=== PATIENT | female | born 1980 | race Caucasian/White ===

== ENCOUNTER → 2017-08-23 | Outpatient (CLI) | payer OTHER ==
[2017-08-23 10:06] LABS: Basophils % (A) 1 %; CHCM 32.6; Eosinophils # (A) 0.1 k/uL (0-0.7); Eosinophils % (A) 2 %; HDW 2.17; HGB 13.8 gm/dL (11.4-16.0); Luc % (Auto) 1; Lymphocytes # (A) 1.8 k/uL (1.0-4.8); Lymphocytes % (A) 24 %; MCHC 33.6 g/dL (31.0-37.0); MCV 92.5 fL (80.0-100.0); Mean Platelet Volume 7.2; Monocytes # (A) 0.5 k/uL (0-1.0); Monocytes % (A) 6 %; Neutrophils # (A) 5.1 k/uL (1.3-7.7); Neutrophils % (A) 67 %; RBC 4.44 m/uL (3.80-5.40); RDW 14.3 % (11.5-15.5); WBC 7.6 k/uL (3.8-10.6); WBC (Perox) 8.09
== END | disposition home or self-care (01) ==
LOC: LABWHC1 09:28
PROVIDERS: ATTEND Obstetrics & Gynecology
DX: Z01.812 Encounter for preprocedural laboratory examination (principal)
CPT/HCPCS: 85025; 86850; 86900; 86901

== ENCOUNTER 2017-08-24 10:42 | Day surgery (SDC) | payer BC, OTHER ==
[2017-08-23 09:59] VITALS: BMI 35.6
[~2017-08-24 10:42] MED LIST: HYDROmorphone 0.5 MG/0.5 ML SYRINGE IVP PRN; LACTATED RINGERS 1,000 ML IV SCH; MIDAZOLAM 2 MG/2 ML VIAL IV PRN; ONDANSETRON 4 MG/2 ML VIAL IVP ONE; Pre Op ABX Message 1 EACH MISC MISCELLANE ONE
[2017-08-24] MEDS ORDERED: LIDOCAINE 1% 20 ML VIAL (10MG/ML) FOR IV START INTRADERMA ONE ×2 (11:15→11:17)
[2017-08-24 11:17] VITALS: TEMP 98
[2017-08-24] MEDS ORDERED: PROPOFOL 10 MG/ML 20 ML VIAL IV ONE (12:00)
[2017-08-24] MEDS ORDERED: LIDOCAINE 1% INJ 10MG/ML (20 ML MDV) ONE (12:00)
[2017-08-24] MEDS ORDERED: MIDAZOLAM 2 MG/2 ML VIAL ONE (12:00)
[2017-08-24] MEDS ORDERED: fentaNYL (PF) 50 MCG/ML 2 ML AMP ONE (12:00)
[2017-08-24] MEDS ORDERED: KETOROLAC 30 MG/ML 1 ML VIAL ONE (12:00)
--- NOTE | 2017-08-24 12:01 | P.HPOB ---
History of Present Illness H&P Date: 08/24/17 Chief Complaint: missed ab Hollie is a 36-year-old female with a 9 week demise. Risks/benefits/ alternatives to a suction D&C were discussed with the patient in detail and all questions have been answered for her prior to proceeding to the operating room. She is scheduled for a suction D&C. Ultrasound verified nonviable at 9 weeks on 08/20/2017. On physical exam vital signs are stable and afebrile. Heart regular, lungs clear, extremities without pain. Abdomen soft nontender. Pelvic exams unremarkable. Assessment missed AB. Plan suction D&C. Past Medical History Past Medical History: Asthma Additional Past Medical History / Comment(s): hiatal hernia History of Any Multi-Drug Resistant Organisms: None Reported Past Surgical History: Adenoidectomy, Cholecystectomy, Ear Surgery, Tonsillectomy Additional Past Surgical History / Comment(s): tube left ear Past Anesthesia/Blood Transfusion Reactions: No Reported Reaction Past Psychological History: Anxiety, Depression Smoking Status: Former smoker Past Alcohol Use History: None Reported Past Drug Use History: None Reported Additional Drug Use History / Comment(s): No longer using. Marijuana use hx 1 time a month - Past Family History Mother Family Medical History: Congestive Heart Failure (CHF) Medications and Allergies Home Medications Medication Instructions Recorded Confirmed Type Albuterol Sulfate [Proair Hfa] 2 puff INHALATION RT-Q6H PRN 07/19/14 08/23/17 History Venlafaxine HCl [Effexor] 75 mg PO QAM 08/23/17 08/23/17 History Allergies Allergy/AdvReac Type Severity Reaction Status Date / Time ciprofloxacin [From Cipro] Allergy Hallucinati Verified 08/23/17 09:50 ons Exam Osteopathic Statement: *. No significant issues noted on an osteopathic structural exam other than those noted in the History and Physical/Consult. - Vital Signs Vital signs: Vital Signs Temp Pulse BP Pulse Ox 08/24/17 11:15 98 F 77 110/73 97
--- NOTE | 2017-08-24 12:32 | P.OP ---
Date of Procedure: 08/24/17 Preoperative Diagnosis: Missed AB Postoperative Diagnosis: Same Procedure(s) Performed: Suction D&C Anesthesia: RENZOA Surgeon: Draen Ramirez Estimated Blood Loss (ml): 50 Pathology: other (Products of conception) Condition: stable Disposition: same day Description of Procedure: Patient was taken to the operating suite where a general anesthetic was found be adequate. She was prepped and draped in normal sterile fashion and placed in dorsal lithotomy position. Initially weighted speculum was inserted into the vagina and the anterior lip of cervix identified and grasped with an Allis clamp. Cervix isn't dilated. Using a 9 curved tip suction catheter the catheter was inserted and suction was applied clockwise rotation was then done to help extrude the tissue. This was sent to times. Once this was accomplished gentle sharp curettings were done to make verified no further tissue was in the uterus and 2 more passes with suction tip were done. At the conclusion of the procedure bleeding was noted to be minimal and patient was taken to the recovery room in stable and satisfactory condition. Plan - Discharge Summary New Discharge Prescriptions: New Ibuprofen [Motrin] 600 mg PO Q6HR PRN #30 tab PRN Reason: Pain Methylergonovine [Methergine] 0.2 mg PO TID #6 tablet No Action Albuterol Sulfate [Proair Hfa] 2 puff INHALATION RT-Q6H PRN PRN Reason: Shortness Of Breath Venlafaxine HCl [Effexor] 75 mg PO QAM Discharge Medication List Albuterol Sulfate [Proair Hfa] 2 puff INHALATION RT-Q6H PRN 07/19/14 [History] Venlafaxine HCl [Effexor] 75 mg PO QAM 08/23/17 [History] Ibuprofen [Motrin] 600 mg PO Q6HR PRN #30 tab 08/24/17 [Rx] Methylergonovine [Methergine] 0.2 mg PO TID #6 tablet 08/24/17 [Rx] Follow up Appointment(s)/Referral(s): Daren Ramirez DO [Doctor of Osteopathic Medicine] - 1 Week Activity/Diet/Wound Care/Special Instructions: Heavy lifting, limit stairs and driving and pelvic rest. If any high temperatures, heavy bleeding, or severe pain call my office
[2017-08-24 13:47] VITALS: RESP 18
[2017-08-24 14:12] VITALS: BP 115/66; PULSE 61
== END 2017-08-24 14:15 | disposition home or self-care (01) ==
LOC: OR 10:42
PROVIDERS: ATTEND Obstetrics & Gynecology
DX: O02.1 Missed abortion (principal); J45.909 Unspecified asthma, uncomplicated; K44.9 Diaphragmatic hernia without obstruction or gangrene; F41.9 Anxiety disorder, unspecified; F32.9 Major depressive disorder, single episode, unspecified; Z3A.09 9 weeks gestation of pregnancy; Z88.1 Allergy status to other antibiotic agents; Z79.899 Other long term (current) drug therapy; Z87.891 Personal history of nicotine dependence; Z82.49 Family history of ischemic heart disease and other diseases of the circulatory system
CPT/HCPCS: 59820; 86900; 86901; 88305; 86850; J2250; J2405; J2001; J3010; J1885; J2704; J1170; 85025

== ENCOUNTER 2017-12-22 21:48 | Emergency (ER) | payer OTHER ==
[2017-12-22] MEDS ORDERED: DIPH,PERTUS(ACELL)TETVAC-LF 0.5 ML VIAL IM ONE (22:32)
[2017-12-22] MEDS ORDERED: GELATIN SPONGE,ABSORB (SMALL) 1 EACH SPONGE TOPICAL STA (22:45)
--- NOTE | 2017-12-22 23:00 | ED ---
General Adult HPI - General Chief complaint: Wound/Laceration Stated complaint: finger lac Time Seen by Provider: 12/22/17 21:58 Source: patient, RN notes reviewed Mode of arrival: ambulatory Limitations: no limitations - History of Present Illness Initial comments: 37 year old female presents to the emergency department for a chief complaint of laceration to the MCP joint of the second digit of the left hand x 2 hours. Patient states she was washing dishes when she scraped her hand across a glass that had broken. She did not realize the glass was broken. She states she did not think she needed stitches but that it would not stop bleeding. Patient is not up-to-date on her tetanus shot. Patient states she has full range of motion of the finger and full sensation in the finger. Patient has no other complaints at this time. Patient denies shortness of breath, chest pain, abdominal pain, nausea or vomiting. - Related Data Home Medications Medication Instructions Recorded Confirmed Albuterol Sulfate [Proair Hfa] 2 puff INHALATION RT-Q6H PRN 07/19/14 08/23/17 Venlafaxine HCl [Effexor] 75 mg PO QAM 08/23/17 08/23/17 Previous Rx's Medication Instructions Recorded Ibuprofen [Motrin] 600 mg PO Q6HR PRN #30 tab 08/24/17 Methylergonovine [Methergine] 0.2 mg PO TID #6 tablet 08/24/17 Allergies Allergy/AdvReac Type Severity Reaction Status Date / Time ciprofloxacin [From Cipro] Allergy Hallucinati Verified 08/23/17 09:50 ons Review of Systems ROS Statement: Those systems with pertinent positive or pertinent negative responses have been documented in the HPI. ROS Other: All systems not noted in ROS Statement are negative. Past Medical History Past Medical History: Asthma Additional Past Medical History / Comment(s): hiatal hernia History of Any Multi-Drug Resistant Organisms: None Reported Past Surgical History: Adenoidectomy, Cholecystectomy, Tonsillectomy Past Anesthesia/Blood Transfusion Reactions: No Reported Reaction Past Psychological History: Anxiety, Bipolar, Depression Smoking Status: Former smoker Past Alcohol Use History: None Reported Past Drug Use History: None Reported General Exam Limitations: no limitations Respiratory exam: Present: normal lung sounds bilaterally. Absent: respiratory distress, wheezes, rales, rhonchi, stridor Cardiovascular Exam: Present: regular rate, normal rhythm, normal heart sounds. Absent: systolic murmur, diastolic murmur, rubs, gallop, clicks Extremities exam: Present: full ROM, normal capillary refill, other (There is a 0.5 cm x 0.5 cm abrasion on the dorsal aspect MCP joint of the second digit of the left hand. This cannot be stitched. It is slightly bleeding. Patient has full range of motion of that finger and capillary refill is less than 2 seconds. ). Absent: tenderness, pedal edema, joint swelling, calf tenderness Course Vital Signs 12/22/17 21:50 Temperature 97.9 F Pulse Rate 102 H Respiratory 18 Rate Blood Pressure 174/90 O2 Sat by Pulse 98 Oximetry Medical Decision Making - Medical Decision Making 37 year old female presents the emergency department for chief complaint of abrasion to the MCP joint of the second digit of the left hand. Patient states this happened about 2 hours ago. Patient is not up-to-date on her tetanus shot. Patient was given a tetanus shot in the emergency department. On exam patient has no range of motion of the affected finger and radial pulse 2+. Capillary refill less than 2 seconds in the affected finger. Neurovascular intact. Gelfoam was applied to the area due to the bleeding. Patient was educated that it would fall off on its own probably tomorrow. She is to return if she notices any worsening symptoms or signs of infection. She is to follow up with primary care in 1-2 days. Disposition Clinical Impression: Laceration Disposition: HOME SELF-CARE Condition: Good Instructions: Laceration (ED) Additional Instructions: Please return to the emergency Department if you notice any worsening symptoms or signs of infection. Otherwise follow-up with primary care in 1-2 days. Let the Gelfoam fall off on its own. Take Motrin or Tylenol for pain relief. Is patient prescribed a controlled substance at discharge?: No Referrals: Derek Ramos MD [Primary Care Provider] - 1-2 days Time of Disposition: 23:01
[2017-12-22 23:12] VITALS: BP 168/59; PULSE 88; RESP 20; TEMP 98.3
== END 2017-12-22 23:10 | disposition home or self-care (01) ==
LOC: EC 21:48
DX: S61.211A Laceration without foreign body of left index finger without damage to nail, initial encounter (principal); F41.9 Anxiety disorder, unspecified; F32.9 Major depressive disorder, single episode, unspecified; Z23 Encounter for immunization; Z79.899 Other long term (current) drug therapy; Z88.1 Allergy status to other antibiotic agents; Z87.891 Personal history of nicotine dependence; W25.XXXA Contact with sharp glass, initial encounter; Y93.G1 Activity, food preparation and clean up; Y92.009 Unspecified place in unspecified non-institutional (private) residence as the place of occurrence of the external cause
CPT/HCPCS: 90471; 90715; 99282

== ENCOUNTER 2017-12-29 14:06 | Emergency (ER) | payer OTHER ==
[2017-12-29 14:32] VITALS: BP 157/84; PULSE 102; RESP 18; TEMP 97.3
[2017-12-29] MEDS ORDERED: Acetaminophen-Codeine 300-30mg TAB PO STA (15:28)
--- NOTE | 2017-12-29 16:04 | XR ---
EXAM TYPE: LUMBAR SPINE X RAY SERIES COMPARISON: NONE HISTORY: Pain TECHNIQUE: 3 views are submitted. FINDINGS: Alignment is anatomic. The pedicles are intact. The transverse processes are intact. There is no s pondylolysis or spondylolisthesis. Metallic structure overlying the left pelvis is nonspecific. Mild hypertrophic spurring involving several vertebral segments. Facet arthropathy at L4-5 and L5-S1 sugg ested. No compression deformities. IMPRESSION: 1. Facet arthropathy L4-5 and L5-S1. If there is concern for disc herniation correlate with MRI as cl inically warranted.
--- NOTE | 2017-12-29 16:54 | ED ---
General Adult HPI - General Chief complaint: Back Pain/Injury Stated complaint: Rt leg pain Time Seen by Provider: 12/29/17 14:38 Source: patient, RN notes reviewed Mode of arrival: ambulatory Limitations: no limitations - History of Present Illness Initial comments: 37-year-old female presents to the emergency department for a chief complaint of lower back pain 2 days. Patient denies any injury but states that throughout the day on Wednesday she started to have a tightening in the back and worsening of pain. Patient denies chronic back pain. Patient denies any bladder or bowel changes. Patient denies saddle anesthesia. Patient states the pain is a sharp pain that shoots into her groin and down her leg from her low back. Patient saw a provider in an urgent care and was given steroids yesterday. Patient began them yesterday and continued them today. Patient wanted to be seen again today because she states they are not helping with the pain. Patient denies any numbness or tingling in her legs. Patient denies any other complaints at this time including shortness of breath, chest pain, abdominal pain, nausea or vomiting. - Related Data Home Medications Medication Instructions Recorded Confirmed Albuterol Sulfate [Proair Hfa] 2 puff INHALATION RT-Q6H PRN 14 08/23/17 Venlafaxine HCl [Effexor] 75 mg PO QAM 08/23/17 08/23/17 Previous Rx's Medication Instructions Recorded Ibuprofen [Motrin] 600 mg PO Q6HR PRN #30 tab 08/24/17 Methylergonovine [Methergine] 0.2 mg PO TID #6 tablet 08/24/17 Acetaminophen-Codeine 300-30mg 1 tab PO Q6H PRN #12 tablet 12/29/17 [Tylenol #3] Ibuprofen [Motrin] 600 mg PO Q8HR PRN #20 tab 12/29/17 Allergies Allergy/AdvReac Type Severity Reaction Status Date / Time ciprofloxacin [From Cipro] Allergy Hallucinati Verified 12/29/17 14:27 ons Review of Systems ROS Statement: Those systems with pertinent positive or pertinent negative responses have been documented in the HPI. ROS Other: All systems not noted in ROS Statement are negative. Past Medical History Past Medical History: Asthma Additional Past Medical History / Comment(s): hiatal hernia History of Any Multi-Drug Resistant Organisms: None Reported Past Surgical History: Adenoidectomy, Cholecystectomy, Tonsillectomy Past Anesthesia/Blood Transfusion Reactions: No Reported Reaction Past Psychological History: Anxiety, Bipolar, Depression Smoking Status: Current every day smoker Past Alcohol Use History: Occasional Past Drug Use History: None Reported General Exam Limitations: no limitations General appearance: alert, in no apparent distress Head exam: Present: atraumatic, normocephalic, normal inspection Neck exam: Present: normal inspection, full ROM. Absent: tenderness, meningismus, lymphadenopathy Respiratory exam: Present: normal lung sounds bilaterally. Absent: respiratory distress, wheezes, rales, rhonchi, stridor Cardiovascular Exam: Present: regular rate, normal rhythm, normal heart sounds. Absent: systolic murmur, diastolic murmur, rubs, gallop, clicks Extremities exam: Present: normal inspection, normal capillary refill (in BLE, pedal puses 2+). Absent: pedal edema, joint swelling, calf tenderness Back exam: Present: tenderness (Patient has tenderness along the lumbar spine and bilateral lower back.), paraspinal tenderness (Tenderness bilaterally along the lumbar spine), vertebral tenderness (Tenderness along the lumbar spine), other (Patient is able to walk and was visualized walking to the bathroom). Absent: full ROM (Patient has limited flexion and extension and twisting of the low back.), CVA tenderness (R), CVA tenderness (L) Course Vital Signs 12/29/17 14:27 Temperature 97.3 F L Pulse Rate 102 H Respiratory 18 Rate Blood Pressure 157/84 O2 Sat by Pulse 99 Oximetry Medical Decision Making - Medical Decision Making 37-year-old female presents to the emergency department for chief complaint of low back pain 2 days. Patient saw an urgent care provider yesterday and was given steroids which she is continuing to take. Patient denies any injuries. Patient denies urinary or bowel changes. Patient denies saddle anesthesia or numbness and tingling in the legs. She describes the pain as a sharp pain shooting into her groin and down her leg. Patient had Motrin right before coming to the emergency department. Patient was given Tylenol 3. Patient declined Flexeril. Patient states she is not driving and her boyfriend dropped her off and is picking her up. X-ray was performed which showed some facet arthropathy but no fractures or dislocations. Patient was offered a prescription of Flexeril which she declined because she states she does not want to take too many medications. Patient did accept Motrin and Tylenol 3 prescriptions. MAPS was performed and patient has no previous opioid prescriptions. Patient was offered an orthopedic spine referral which she declined. She states she has a physical therapist and only wants to see Dr. Donahue who is not calling her back at this time. She states she will continue to call him. She was also told to follow up with primary care in 1-2 days. She is to use heat or ice on the affected area as well depending on what helps her feel better. She is to return to the emergency Department if she has any worsening symptoms, bladder or bowel changes, or saddle anesthesia. Patient is aware of this. - Lab Data Lab Results 12/29/17 Range/Units 15:17 Urine HCG, Qual Not Detected (Not Detectd) Disposition Clinical Impression: Acute low back pain Disposition: HOME SELF-CARE Condition: Good Instructions: Acute Low Back Pain (ED) Additional Instructions: Please return to the emergency department if you have any worsening symptoms or bladder or bowel dysfunction. Follow up with primary care provider in one to 2 days. Please take Motrin for pain relief and Tylenol 3 if pain is severe. Prescriptions: Acetaminophen-Codeine 300-30mg [Tylenol #3] 1 tab PO Q6H PRN #12 tablet PRN Reason: Pain Ibuprofen [Motrin] 600 mg PO Q8HR PRN #20 tab PRN Reason: Pain Is patient prescribed a controlled substance at d/c from ED?: Yes Referrals: Derek Ramos MD [Primary Care Provider] - 1-2 days
== END 2017-12-29 17:00 | disposition home or self-care (01) ==
LOC: EC 14:06
DX: M54.5 Low back pain (principal); F32.9 Major depressive disorder, single episode, unspecified; F41.9 Anxiety disorder, unspecified; F17.200 Nicotine dependence, unspecified, uncomplicated; Z88.1 Allergy status to other antibiotic agents; Z79.899 Other long term (current) drug therapy
CPT/HCPCS: 72100; 81025; 99283

== ENCOUNTER → 2018-01-10 | Outpatient (CLI) | payer OTHER ==
[2018-01-10 09:07] LABS: Basophils % (A) 0 %; Eosinophils # (A) 0.3 k/uL (0-0.7); Eosinophils % (A) 3 %; HCT 40.3 % (34.0-46.0); HGB 13.4 gm/dL (11.4-16.0); Lymphocytes # (A) 1.9 k/uL (1.0-4.8); Lymphocytes % (A) 21 %; MCH 29.7 pg (25.0-35.0); MCHC 33.2 g/dL (31.0-37.0); MCV 89.7 fL (80.0-100.0); Mean Platelet Volume 6.5; Monocytes # (A) 0.5 k/uL (0-1.0); Monocytes % (A) 6 %; Neutrophils % (A) 69 %; Platelet Count 269 k/uL (150-450); WBC 8.8 k/uL (3.8-10.6)
[2018-01-10 09:13] LABS: Partial Thromboplastin Time 23.1 sec (22.0-30.0); Prothrombin Time 9.7 sec (9.0-12.0)
[2018-01-10 09:22] LABS: ALT 74 U/L (9-52); AST 25 U/L (14-36); Alkaline Phosphatase 88 U/L (38-126); Anion Gap 12 mmol/L; Blood Urea Nitrogen 10 mg/dL (7-17); Carbon Dioxide 23 mmol/L (22-30); Chloride 105 mmol/L (98-107); Glucose 93 mg/dL (74-99); Potassium 4.2 mmol/L (3.5-5.1); Sodium 140 mmol/L (137-145); Total Bilirubin 0.4 mg/dL (0.2-1.3); Total Protein 6.5 g/dL (6.3-8.2)
[2018-01-10 12:43] LABS: Appearance,Urine Clear (Clear); Bilirubin,Urine Negative (Negative); Blood,Urine Negative (Negative); Color,Urine Light Yellow; Glucose,Urine (UA) Negative (Negative); Ketones,Urine Negative (Negative); Leukocyte Esterase,Urine Negative (Negative); Nitrite,Urine Negative (Negative); PH, Urine 6.5 (5.0-8.0); Protein,Urine Negative (Negative); Specific Gravity,Urine 1.004 (1.001-1.035); Urobilinogen,Urine <2.0 mg/dL (<2.0)
== END | disposition home or self-care (01) ==
LOC: LABPAT 08:10
PROVIDERS: ATTEND Orthopaedic Surgery Orthopaedic Surgery of the Spine
DX: Z01.812 Encounter for preprocedural laboratory examination (principal); M53.80 Other specified dorsopathies, site unspecified; Z01.818 Encounter for other preprocedural examination
CPT/HCPCS: 80048; 80053; 81003; 85025; 85610; 85730; 87070; 93005

== ENCOUNTER 2018-01-12 11:36 | Day surgery (SDC) | payer OTHER ==
[2018-01-10 14:04] VITALS: BMI 35.5
[~2018-01-12 11:36] MED LIST changes: +BACITRACIN 50,000 UNIT, POLYMYXIN B 500,000 UNIT in SODIUM CHLORIDE 0.9% IRRIGATIO 1,00... IRRIGATION ONE; +DEXAMETHASONE SOD PHOSPHATE 10 MG/ML 1 ML VIAL IV ONE; -HYDROmorphone 0.5 MG/0.5 ML SYRINGE IVP PRN; +LIDOCAINE 1% 20 ML VIAL (10MG/ML) FOR IV START INTRADERMA PRN; -ONDANSETRON 4 MG/2 ML VIAL IVP ONE; +ONDANSETRON ODT 4 MG TAB PO ONE; -Pre Op ABX Message 1 EACH MISC MISCELLANE ONE; +SCOPOLAMINE 1.5MG/72HR PATCH TRANSDERM ONE; +ceFAZolin IN SWFI 2 GM/20 ML SYRINGE IVP ONE; +fentaNYL (PF) 50 MCG/ML 2 ML AMP IV PRN
[2018-01-12 12:32] VITALS: BP 137/74; PULSE 68; RESP 18; TEMP 98.4
--- NOTE | 2018-01-12 13:34 | P.DS ---
Providers Attending physician: Rayo Garcias Primary care physician: Derek Salas [facility] Course: The patient presented today for her lumbar spine surgery for decompression discectomy for her disc herniation with lower extremity neuropathy. She continues to have significant symptoms at her back and lower extremity. In preoperative she was discovered have a positive urine test for hCG. She had repeat test which was also positive and then had blood test which was positive showing the patient is newly diagnosed with a new . The patient was unaware of this. With the patient's surgery will be canceled today. We discussed the different issues in regards to surgery and her with her at length. She plans to follow closely with her primary care doctor Dr. Raoms and possibly her OB Dr. Ramirez for close evaluation tomorrow or the next day. She will be discharged here today with her surgery canceled and will follow-up with her in 2-3 weeks. I answered her questions best my ability healing which she can understand and she agrees. Plan - Discharge Summary Discharge Rx Participant: Yes New Discharge Prescriptions: No Action Albuterol Sulfate [Proair Hfa] 2 puff INHALATION RT-Q6H PRN PRN Reason: Shortness Of Breath Acetaminophen-Codeine 300-30mg [Tylenol #3] 1 tab PO Q6H PRN #12 tablet PRN Reason: Pain Gabapentin [Neurontin] 300 mg PO BID Cyanocobalamin [Vitamin B-12] 500 mcg PO DAILY Discharge Medication List Albuterol Sulfate [Proair Hfa] 2 puff INHALATION RT-Q6H PRN 07/19/14 [History] Acetaminophen-Codeine 300-30mg [Tylenol #3] 1 tab PO Q6H PRN #12 tablet [Rx] Cyanocobalamin [Vitamin B-12] 500 mcg PO DAILY 01/10/18 [History] Gabapentin [Neurontin] 300 mg PO BID 01/10/18 [History] Follow up Appointment(s)/Referral(s): Rayo Garcias DO [Doctor of Osteopathic Medicine] - 3 Weeks Derek Ramos MD [Primary Care Provider] - 1-2 Days (New ) Discharge Disposition: HOME SELF-CARE
== END 2018-01-12 13:42 | disposition home or self-care (01) ==
LOC: OR 11:36
PROVIDERS: ATTEND Orthopaedic Surgery Orthopaedic Surgery of the Spine
DX: M51.26 Other intervertebral disc displacement, lumbar region (principal); G57.90 Unspecified mononeuropathy of unspecified lower limb; Z53.8 Procedure and treatment not carried out for other reasons; Z32.01 Encounter for pregnancy test, result positive; Z79.899 Other long term (current) drug therapy; F17.210 Nicotine dependence, cigarettes, uncomplicated
CPT/HCPCS: 84703; 86850; 86900; 86901

== ENCOUNTER → 2018-02-11 | Outpatient (CLI) | payer OTHER ==
--- NOTE | 2018-02-11 12:37 | XR ---
EXAMINATION TYPE: XR chest 2V DATE OF EXAM: 02/11/2018 COMPARISON: NONE TECHNIQUE: PA and lateral views submitted. HISTORY: Presurgical FINDINGS: The lungs are clear and there is no pneumothorax, pleural effusion, or focal pneumonia. Hypertrophic changes spine noted. IMPRESSION: 1. No acute process.
[2018-02-11 12:42] LABS: Basophils % (A) 0 %; Eosinophils % (A) 0 %; HGB 15.4 gm/dL (11.4-16.0); Lymphocytes # (A) 2.5 k/uL (1.0-4.8); Lymphocytes % (A) 23 %; MCH 30.9 pg (25.0-35.0); MCHC 35.1 g/dL (31.0-37.0); MCV 88.1 fL (80.0-100.0); Mean Platelet Volume 6.7; Monocytes # (A) 0.7 k/uL (0-1.0); Monocytes % (A) 7 %; Neutrophils # (A) 7.7 k/uL (1.3-7.7); Neutrophils % (A) 69 %; Platelet Count 350 k/uL (150-450); RBC 4.99 m/uL (3.80-5.40); RDW 12.7 % (11.5-15.5); WBC 11.1 k/uL (3.8-10.6)
[2018-02-11 12:53] LABS: Anion Gap 16 mmol/L; Blood Urea Nitrogen 15 mg/dL (7-17); Calcium 10.1 mg/dL (8.4-10.2); Carbon Dioxide 19 mmol/L (22-30); Chloride 108 mmol/L (98-107); Glucose 91 mg/dL (74-99); Potassium 4.5 mmol/L (3.5-5.1); Sodium 143 mmol/L (137-145)
[2018-02-11 12:55] LABS: Appearance,Urine Clear (Clear); Bilirubin,Urine Negative (Negative); Blood,Urine Negative (Negative); Color,Urine Yellow; Glucose,Urine (UA) Negative (Negative); Ketones,Urine Trace (Negative); Leukocyte Esterase,Urine Negative (Negative); Nitrite,Urine Negative (Negative); PH, Urine 5.5 (5.0-8.0); Protein,Urine Trace (Negative)
[2018-02-11 12:56] LABS: INR 1.1 (<1.2); Partial Thromboplastin Time 22.6 sec (22.0-30.0); Prothrombin Time 10.7 sec (9.0-12.0)
== END | disposition home or self-care (01) ==
LOC: LABPAT 11:41
PROVIDERS: ATTEND Orthopaedic Surgery Orthopaedic Surgery of the Spine
DX: Z01.818 Encounter for other preprocedural examination (principal); Z01.812 Encounter for preprocedural laboratory examination; M48.00 Spinal stenosis, site unspecified; M47.819 Spondylosis without myelopathy or radiculopathy, site unspecified
CPT/HCPCS: 36415; 71046; 80048; 81003; 85025; 85610; 85730

== ENCOUNTER 2018-02-16 05:37 | Day surgery (SDC) | payer OTHER ==
[2018-02-09 09:30] VITALS: BMI 34.0
[~2018-02-16 05:37] MED LIST changes: -LACTATED RINGERS 1,000 ML IV SCH; -ONDANSETRON ODT 4 MG TAB PO ONE; -fentaNYL (PF) 50 MCG/ML 2 ML AMP IV PRN
[2018-02-16] MEDS: LACTATED RINGERS 1,000 ML IV SCH ×2 (06:26→14:44)
[2018-02-16] MEDS ORDERED: ONDANSETRON 4 MG/2 ML VIAL ONE (06:28)
[2018-02-16 06:29] LABS: Glucose,Whole Blood 101 mg/dL (75-99)
[2018-02-16] MEDS ORDERED: ONDANSETRON 4 MG/2 ML VIAL IVP ONE ×2 (06:30→08:44)
[2018-02-16] MEDS ORDERED: MIDAZOLAM 2 MG/2 ML VIAL ONE (07:28)
[2018-02-16] MEDS ORDERED: LIDOCAINE 1% INJ 10MG/ML (20 ML MDV) ONE (07:28)
[2018-02-16] MEDS ORDERED: HYDROmorphone (PF) 1 MG/ML ONE (07:28)
[2018-02-16] MEDS ORDERED: fentaNYL (PF) 50 MCG/ML 2 ML AMP ONE (07:28)
[2018-02-16] MEDS ORDERED: KETOROLAC 30 MG/ML 1 ML VIAL ONE (07:28)
[2018-02-16] MEDS ORDERED: SUCCINYLCHOLINE CHLORIDE 100 MG/5 ML SYR IV ONE (07:28)
[2018-02-16] MEDS ORDERED: ROCURONIUM BROMIDE 10 MG/ML 10 ML VIAL IV ONE (07:28)
[2018-02-16] MEDS ORDERED: PROPOFOL 10 MG/ML 20 ML VIAL IV ONE (07:28)
[2018-02-16] MEDS ORDERED: GELATIN SPONGE,ABSORB (LARGE) 1 EACH SPONGE TOPICAL ONE (07:49)
[2018-02-16] MEDS ORDERED: BUPIVACAINE (PF) 0.5% 30 ML VIAL SQ ONE (07:57)
[2018-02-16] MEDS ORDERED: THROMBIN (BOVINE) 5,000 UNIT VIAL MISCELLANE ONE (07:58)
[2018-02-16] MEDS ORDERED: methylPREDNISolone ACETATE 40 MG/ML 1 ML VIAL MISCELLANE ONE (08:25)
[2018-02-16] MEDS ORDERED: LACTATED RINGERS 1,000 ML IV ONE (08:33)
[2018-02-16] MEDS ORDERED: MAGNESIUM HYDROXIDE 2,400 MG/10 ML CUP PO PRN (08:44)
[2018-02-16] MEDS ORDERED: KETOROLAC 30 MG/ML 1 ML VIAL IVP PRN (08:44)
[2018-02-16] MEDS ORDERED: DIAZEPAM 5 MG TAB PO PRN (08:44)
[2018-02-16] MEDS ORDERED: IBUPROFEN 600 MG TAB PO PRN (08:44)
[2018-02-16] MEDS ORDERED: BENZOCAINE/MENTHOL LOZENG 1 EACH LOZENGE MUCOUS MEM PRN (08:44)
[2018-02-16] MEDS ORDERED: HYDROmorphone 0.5 MG/0.5 ML SYRINGE IVP PRN ×2 (08:44)
[2018-02-16] MEDS ORDERED: SODIUM CHLORIDE 0.9% 1,000 ML IV SCH (08:45)
[2018-02-16] MEDS ORDERED: HYDROcodone/APAP 7.5-325MG 1 EACH TAB PO PRN (08:47)
[2018-02-16] MEDS ORDERED: Acetaminophen-Codeine 300-30mg TAB PO PRN ×2 (08:47)
--- NOTE | 2018-02-16 08:52 | P.OP ---
Date of Procedure: 02/16/18 Preoperative Diagnosis: Herniated nucleus pulposus L5-S1, right lower extremity radiculopathy, right lower extremity weakness Postoperative Diagnosis: Same Anesthesia: GETA Pathology: none sent Condition: stable Disposition: PACU Description of Procedure: BRIEF OPERATIVE NOTE Preoperative Diagnosis: Herniated nucleus pulposus L5-S1, right lower extremity radiculopathy, right lower extremity weakness Postoperative Diagnosis: Same Procedure: Laminectomy and decompression L5-S1 Discectomy for decompression L5-S1 Use of fluoroscopic guidance Surgeon: Dr. Garcias Gum Worker: Cory RAMSEY who is present throughout the entire the case persistence during positioning, dissection, exposure, visualization, and all crucial elements of the case as well as closure. Anesthesia: General anesthesia Estimated blood loss: Approximately 20 mL none Complications: None apparent Components implanted: Disposition: To recovery room in good stable condition. OPERATIVE INDICATIONS The patient has been having issues in their lower back and lower extremities. She is having severe pain at her back and right lower extremity over an S1 distribution. She is found have a large disc herniation at L5-S1 with extruded fragment which correlated well with her symptoms. The patient has been through conservative treatment. She was initially scheduled to undergo surgical intervention a few weeks ago but in preoperative area. It was found that she was . The do not work out and she is no longer expecting. She has been cleared by her primary care doctor to proceed with surgery at this point. She is very eager to undergo surgery as she has severe pain and debility due to her right leg radicular symptoms. We discussed various treatment options including surgery, and the patient wishes to proceed with surgery We discussed the risk, patient's alternatives and benefits of surgery including but not limited to, risk of bleeding risk of infection, risk of need for further surgery, risk of decreased, loss of motion, loss of function, nerve damage, paralysis, heart attack, blindness and . OPERATIVE SUMMARY After discussing all the risks, patient alternatives and benefits at length, the patient elected to proceed with surgical intervention, signed informed consent, and presented for their procedure. The patient was seen and examined in the preoperative holding area and the surgical site was marked. The patient was given antibiotics and brought to the operating room. The patient was sedated and intubated by anesthesia in standard fashion. The patient was positioned on to the operating room table in a prone position on the appropriate frame which was well-padded and well molded. We were careful to pad any bony prominences and pressure points. We were careful to maintain the patient's cervical spine and good neutral alignment and position throughout. The patient was prepped and draped in a normal standard fashion. An appropriate timeout and keystone protocol performed. We were able to proceed with the surgery. Fluoroscopy was utilized to establish the appropriate level. The local wound area was infiltrated with local anesthetic. An incision was made at the midline longitudinally over the appropriate levels at L5-S1. The patient has a tattoo at her lower back and we discussed with her prior to surgery the fact that the incision may involve her tattoo and she was agreeable. Dissection was taken down subcutaneously to the level of the fascia which was split midline. Dissection was taken over the lamina. Intraoperative fluoroscopy was taken which showed a marker at the appropriate level at L5-S1. With the appropriate level positively confirmed, we were able to proceed with laminectomy. The wound was copiously irrigated and suctioned dry as had been done periodically throughout the case. I performed a laminectomy with a combination of curettes and a high-speed bur and Kerrison rongeurs. A small medial facetectomy was performed again further access. A partial foraminotomy was also performed. Portions of the ligamentum flavum were taken down to expose the dura and traversing nerve root. I was able to mobilize the traversing nerve root and gain access to the disc space. Note was made of obvious compression from the disc. There was significant tension on the nerve root and a large extruded disc fragment. Protecting the soft tissue structures , a small annulotomy was established. I was able to perform discectomy and remove any extruded disc fragments and any loose fragments from within the disc itself. There is some disc desiccation noted. I tried to preserve the disc annulus that appeared stable. There were no further extruded fragments noted. There is no evidence of dural tear or leak. Good hemostasis maintained. The wound was copiously irrigated and suctioned dry. Good decompression and discectomy was noted. We were able to proceed with closure. The fascia was closed for a watertight closure. The subcuticular tissue was closed with absorbable suture. The wound was cleaned and dried and dressed with the appropriate dressing. The drapes were broken down. The patient was gently rolled back onto their hospital bed being careful to maintain their cervical spine and good neutral alignment and position. They were woken up by anesthesia, extubated, and brought to the recovery room in good stable condition. The patient will be admitted to the hospital for observation and for appropriate postoperative care, medical management and monitoring. We will continue to follow them closely about the postoperative course.
--- NOTE | 2018-02-16 09:11 | XR ---
EXAMINATION TYPE: XR lumbar spine 1V, FL guidance operating room DATE OF EXAM: 02/16/2018 CLINICAL HISTORY: Back pain and lumbar laminectomy TECHNIQUE: Fluoroscopy. COMPARISON: None. FINDINGS/IMPRESSION: Fluoroscopic guidance was provided during procedure performed by Dr. Garcias. A total of 5 seconds of fluoroscopic time was utilized during the procedure and 1 spot images was acqui red demonstrating localization during a lumbar laminectomy.
[2018-02-16] MEDS: fentaNYL (PF) 50 MCG/ML 2 ML AMP IV PRN ×2 (09:16→09:20)
[2018-02-16 09:35] VITALS: RESP 16
[2018-02-16 12:39] VITALS: BP 111/69; PULSE 56; TEMP 98.3
[2018-02-16] MEDS ORDERED: ceFAZolin IN SWFI 2 GM/20 ML SYRINGE IVP SCH (16:00)
== END 2018-02-16 16:18 | disposition home or self-care (01) ==
LOC: OR 05:37 → 3SUR 08:49 → OR 16:18
PROVIDERS: ATTEND Orthopaedic Surgery Orthopaedic Surgery of the Spine
DX: M51.17 Intervertebral disc disorders with radiculopathy, lumbosacral region (principal); Z79.1 Long term (current) use of non-steroidal anti-inflammatories (NSAID); Z79.899 Other long term (current) drug therapy; Z88.1 Allergy status to other antibiotic agents; F17.210 Nicotine dependence, cigarettes, uncomplicated; Z88.8 Allergy status to other drugs, medicaments and biological substances; Z79.3 Long term (current) use of hormonal contraceptives; Z79.52 Long term (current) use of systemic steroids; F31.9 Bipolar disorder, unspecified; F41.9 Anxiety disorder, unspecified; E66.9 Obesity, unspecified; Z68.34 Body mass index [BMI] 34.0-34.9, adult
CPT/HCPCS: 81025; 86900; 86901; 86850; 72020; 36415; 63030; J1030; J2405; J3010; J0690

== ENCOUNTER → 2018-10-28 | Outpatient (CLI) | payer OTHER ==
--- NOTE | 2018-10-28 13:31 | US ---
EXAMINATION TYPE: Transabdominal DATE OF EXAM: 10/28/2018 1:06 PM COMPARISON: NONE CLINICAL HISTORY: Z33.1 state, incidental. unplanned on control A2 EXAM PERFORMED: OBTA EXAM MEASUREMENTS: GESTATIONAL AGE / DATING Physician Established: Not yet established Dates by LMP: (5 weeks/3 days) EDC: 06/27/2019 Dates by First Scan: No previous this is first scan Dates by Current Scan for: (7 weeks/0 days) EDC: 06/16/2019 MATERNAL ANATOMY Uterus: 11.7 x 6.8 x 6.0cm Right Ovary: 3.3 x 2.4 x 2.2cm Left Ovary: 1.9 x 2.1 x 2.2cm Post CDS / Adnexa: wnl Presence of free fluid: no Presence of corpus luteal cyst: 1.9cm on the right Presence of subchorionic bleed: no GESTATION / SURVEY CRL: 1.0cm (7 weeks/0 days) MSD: wnl Yolk Sac (normal less than 6mm): 0.3cm Heart Rate: 151 bpm Rhythm: Normal IUP: Viable IUP Date of LMP: 09/20/2018 IMPRESSION: Single intrauterine gestation estimated at 7 weeks 0 days gestation based on the crown-rump length. C ardiac activity measures 151 bpm.
== END | disposition home or self-care (01) ==
LOC: RADUSWWP 12:42
PROVIDERS: ATTEND Family Medicine
DX: Z34.81 Encounter for supervision of other normal pregnancy, first trimester (principal); Z3A.01 Less than 8 weeks gestation of pregnancy
CPT/HCPCS: 76801

== ENCOUNTER → 2019-09-05 | Outpatient (CLI) | payer OTHER ==
[2019-09-05 13:01] LABS: Basophils % (A) 1 %; Eosinophils # (A) 0.2 k/uL (0-0.7); Eosinophils % (A) 3 %; HCT 40.5 % (34.0-46.0); HGB 13.8 gm/dL (11.4-16.0); Lymphocytes # (A) 2.3 k/uL (1.0-4.8); Lymphocytes % (A) 31 %; MCH 30.4 pg (25.0-35.0); MCHC 33.9 g/dL (31.0-37.0); MCV 89.5 fL (80.0-100.0); Mean Platelet Volume 6.7; Monocytes # (A) 0.5 k/uL (0-1.0); Monocytes % (A) 6 %; Neutrophils # (A) 4.1 k/uL (1.3-7.7); Neutrophils % (A) 57 %; Platelet Count 313 k/uL (150-450); RBC 4.53 m/uL (3.80-5.40); RDW 12.8 % (11.5-15.5); WBC 7.2 k/uL (3.8-10.6)
== END | disposition home or self-care (01) ==
LOC: LABMAIN 12:08
PROVIDERS: ATTEND Obstetrics & Gynecology
DX: Z01.812 Encounter for preprocedural laboratory examination (principal)
CPT/HCPCS: 36415; 85025

== ENCOUNTER 2019-09-12 06:16 | Day surgery (SDC) | payer OTHER ==
[2019-09-08 15:43] VITALS: BMI 35.2
--- NOTE | 2019-09-11 16:39 | P.HPOB ---
History of Present Illness H&P Date: 09/11/19 Chief Complaint: Family planning Hollie is a 38-year-old female who is completed her family planning and desires permanent sterilization. Risks/benefits/alternatives to this procedure were discussed with the patient in detail and all questions were answered for her prior to proceeding to the operative room including but not limited to damage to bladder/bowel/ureters/nerves/vessels and anesthesia risks. She is scheduled for a left scopic tubal occlusion with Filshie clips. Past Medical History Past Medical History: Asthma Additional Past Medical History / Comment(s): hiatal hernia History of Any Multi-Drug Resistant Organisms: None Reported Past Surgical History: Adenoidectomy, Back Surgery, Cholecystectomy, Tonsillectomy Additional Past Surgical History / Comment(s): laminectomy of L5-S1, D&C Past Anesthesia/Blood Transfusion Reactions: No Reported Reaction Smoking Status: Former smoker - Past Family History Mother Family Medical History: No Reported History, Congestive Heart Failure (CHF) Medications and Allergies Home Medications Medication Instructions Recorded Confirmed Type Albuterol Sulfate [Proair Hfa] 2 puff INHALATION RT-Q6H PRN 07/19/14 09/08/19 Hi story buPROPion HCL [Wellbutrin XL] 150 mg PO HS 09/08/19 09/08/19 History traZODone HCL 50 mg PO HS 09/08/19 09/08/19 History Allergies Allergy/AdvReac Type Severity Reaction Status Date / Time ciprofloxacin [From Cipro] Allergy Hallucinati Verified 09/08/19 15:38 ons Exam Osteopathic Statement: *. No significant issues noted on an osteopathic structural exam other than those noted in the History and Physical/Consult. - OBG Physical Exam Breast: both: normal (no masses) Abdomen: bowel sounds normal, no diffuse tenderness, no bruit present, no guarding noted, no hepatomegaly, no splenomegaly, no mass Vulva: both: normal Vagina: normal moisture, no discharge Cervix: no lesion, no discharge Uterus: normal size, normal contour Adnexa: both: normal Anus/Rectum: normal perianal skin, no rectal mass, no hemorrhoids, heme negative
[~2019-09-12 06:16] MED LIST changes: -BACITRACIN 50,000 UNIT, POLYMYXIN B 500,000 UNIT in SODIUM CHLORIDE 0.9% IRRIGATIO 1,00... IRRIGATION ONE; +HYDROmorphone 0.5 MG/0.5 ML SYRINGE IVP PRN; +LACTATED RINGERS 1,000 ML IV SCH; +ONDANSETRON 4 MG/2 ML VIAL IVP ONE; +Pre Op ABX Message 1 EACH MISC MISCELLANE ONE; -ceFAZolin IN SWFI 2 GM/20 ML SYRINGE IVP ONE
[2019-09-12 06:37] VITALS: TEMP 98.3
[2019-09-12] MEDS ORDERED: BUPIVACAINE (PF) 0.25% 30 ML VIAL SQ ONE ×3 (07:08→07:38)
[2019-09-12] MEDS ORDERED: fentaNYL (PF) 50 MCG/ML 2 ML AMP ONE (07:17)
[2019-09-12] MEDS ORDERED: PROPOFOL 10 MG/ML 20 ML VIAL IV ONE (07:17)
[2019-09-12] MEDS ORDERED: LIDOCAINE 1% INJ 10MG/ML (20 ML MDV) ONE (07:17)
[2019-09-12] MEDS ORDERED: GLYCOPYRROLATE 0.2 MG/ML 2 ML VIAL ONE (07:17)
[2019-09-12] MEDS ORDERED: MIDAZOLAM 2 MG/2 ML VIAL ONE (07:17)
[2019-09-12] MEDS ORDERED: NEOSTIGMINE 1 MG/ML 10 ML VIAL ONE (07:17)
[2019-09-12] MEDS ORDERED: ROCURONIUM BROMIDE 10 MG/ML 10 ML VIAL IV ONE (07:17)
--- NOTE | 2019-09-12 07:57 | P.OP ---
Date of Procedure: 09/12/19 Preoperative Diagnosis: Family planning Postoperative Diagnosis: Same Procedure(s) Performed: Laparoscopic tubal ligation with Filshie clips Anesthesia: SHANNON Surgeon: Daren Ramirez Estimated Blood Loss (ml): 3 IV fluids (ml): 300 Urine output (ml): 50 Pathology: none sent Condition: stable Disposition: same day Operative Findings: Normal female pelvic anatomy Description of Procedure: Hollie was taken to the operating suite where a general anesthetic was found be adequate. She was prepped and draped in the normal sterile fashion and placed in the dorsal lithotomy position. Initially a speculum was inserted into the vagina and the anterior lip of the cervix was identified and grasped with an Allis clamp. It was then sounded to 8 cm and a uterine manipulator was inserted without difficulty. Other instruments were then removed and a red rubber catheter was used to drain the bladder of urine. Once this was accomplished gloves were changed and attention was turned to the abdominal portion of the procedure. 3 mL of quarter percent Marcaine was then injected periumbilically and through this injected anesthetic a 5 mm skin incision was made. A 5 mm trocar and sleeve were then inserted under direct visualization with an optical trocar and sleeve. Once camera was fully in the abdomen gas was allowed to fully expand the abdomen and a second skin incision was 8 mm was placed 3 cm above the pubic symphysis in the midline and an 8 mm trocar and sleeve were inserted through this incision. Uterus was then elevated and the fallopian tubes were identified. First the right tube than the left tube had a Filshie clip applied between 2 and 3 cm from uterine cornu. No bleeding is noted in the mesosalpinx no other gross findings are noted therefore instruments are removed and gas was allowed to expel from the abdomen with 5 deep breaths provided. Completed 4-0 Vicryl was used to close incision subcuticularly and the remaining 7 mL of quarter percent Marcaine was injected around these incisions. Instrument was then removed from the vagina. Sponge, lap, needle counts were all correct 2. Patient was then taken to the recovery room in stable and satisfactory condition. Plan - Discharge Summary Discharge Rx Participant: Yes New Discharge Prescriptions: New Ibuprofen [Motrin] 600 mg PO Q6HR PRN #30 tab PRN Reason: Pain HYDROcodone/APAP 5-325MG [[place] 5-325] 1 tab PO Q4HR PRN #30 tab PRN Reason: Pain No Action Albuterol Sulfate [Proair Hfa] 2 puff INHALATION RT-Q6H PRN PRN Reason: Shortness Of Breath traZODone HCL 50 mg PO HS buPROPion HCL [Wellbutrin XL] 150 mg PO HS Discharge Medication List Albuterol Sulfate [Proair Hfa] 2 puff INHALATION RT-Q6H PRN 07/19/14 [History] buPROPion HCL [Wellbutrin XL] 150 mg PO HS 09/08/19 [History] traZODone HCL 50 mg PO HS 09/08/19 [History] HYDROcodone/APAP 5-325MG [[place] 5-325] 1 tab PO Q4HR PRN #30 tab 09/12/19 [Rx] Ibuprofen [Motrin] 600 mg PO Q6HR PRN #30 tab 09/12/19 [Rx] Follow up Appointment(s)/Referral(s): Daren Ramirez DO [Doctor of Osteopathic Medicine] - 2 Weeks Activity/Diet/Wound Care/Special Instructions: No heavy lifting, limit stairs and driving, and pelvic rest. If any high temperatures, heavy bleeding, or severe pain call my office Discharge Disposition: HOME SELF-CARE
[2019-09-12] MEDS ORDERED: ALBUTEROL NEBULIZED 2.5 MG/3 ML INHALATION ONE (08:03)
[2019-09-12] MEDS ORDERED: ONDANSETRON 4 MG/2 ML VIAL IVP ONE (08:05)
[2019-09-12] MEDS ORDERED: HYDROmorphone 1 MG/ML 1 ML SYRINGE IVP ONE ×3 (08:07→08:45)
[2019-09-12] MEDS ORDERED: KETOROLAC 30 MG/ML 1 ML VIAL IVP ONE (08:25)
[2019-09-12 08:54] VITALS: RESP 16
[2019-09-12] MEDS ORDERED: HYDROcodone/APAP 5-325MG 1 EACH TAB PO ONE (10:01)
[2019-09-12 10:07] VITALS: BP 119/65; PULSE 73
== END 2019-09-12 10:29 | disposition home or self-care (01) ==
LOC: OR 06:16
PROVIDERS: ATTEND Obstetrics & Gynecology
DX: Z30.2 Encounter for sterilization (principal); J45.909 Unspecified asthma, uncomplicated; F41.9 Anxiety disorder, unspecified; F32.9 Major depressive disorder, single episode, unspecified; K44.9 Diaphragmatic hernia without obstruction or gangrene; Z90.49 Acquired absence of other specified parts of digestive tract; Z90.89 Acquired absence of other organs; Z98.890 Other specified postprocedural states; Z87.891 Personal history of nicotine dependence; Z88.1 Allergy status to other antibiotic agents
CPT/HCPCS: 81025; 58671; J2250; J1100; J2710; J2405; J2001; J3010; J1885; J1170; J2704

== ENCOUNTER → 2020-05-21 | Outpatient (CLI) | payer OTHER ==
--- NOTE | 2020-05-21 19:51 | US ---
EXAMINATION TYPE: US pelvis complete transvag DATE OF EXAM: 05/21/2020 COMPARISON: None CLINICAL HISTORY: 39-year-old female L68.0 HIRSUTISM. Pt states multiple symptoms, hot flashes, hirsu tism, weight gain TECHNIQUE: Transvaginal (TV) and Transabdominal (TA) . Transabdominal sonographic images of the pel vis were acquired. Transvaginal sonographic images were medically necessary to better assess the fol lowing anatomy: Ovaries Date of LMP: Unknown FINDINGS: EXAM MEASUREMENTS: Uterus: 10.2 x 3.8 x 4.8 cm Endometrial Stripe: 0.3 cm Right Ovary: 2.6 x 2.5 x 1.6 cm for a volume of 5.5 mL Left Ovary: 2.7 x 2.1 x 1.2 cm for a volume of 3.6 mL 1. Uterus: Appeared wnl, small Nabothian cyst in cervix, difficult to visualize on TV 2. Endometrium: wnl 3. Right Ovary: wnl, 3-4 follicles are noted 4. Left Ovary: wnl, 3-4 follicles are noted 5. Bilateral Adnexa: wnl 6. Posterior cul-de-sac: wnl IMPRESSION: Small cervical nabothian cysts. Normal follicular change in both ovaries. No specific abnormality see n.
== END | disposition home or self-care (01) ==
LOC: RADUSWWP 14:57
PROVIDERS: ATTEND Family Medicine
DX: N88.8 Other specified noninflammatory disorders of cervix uteri (principal)
CPT/HCPCS: 76830; 76856

== ENCOUNTER → 2021-01-17 | Outpatient (CLI) | payer OTHER ==
--- NOTE | 2021-01-20 10:00 | MM ---
Reason for exam: clinical finding. Baseline mammogram. Physical Findings: Nurse did not find any significant physical abnormalities on exam. MG Diagnostic Mammo w CAD DOROTHY Bilateral CC and MLO view(s) were taken. There are scattered fibroglandular densities. There is no discrete abnormality. No significant new findings when compared with previous films. These results were verbally communicated with the patient and result sheet given to the patient on 01/17/21. ASSESSMENT: Incomplete: need additional imaging evaluation, BI-RAD 0 RECOMMENDATION: Ultrasound of both breasts.
--- NOTE | 2021-01-20 10:01 | USB ---
Reason for exam: clinical finding. US Breast BILAT Technologist: Lana Hutchinson Right complete breast ultrasound includes all four quadrants, the retroareolar region and axilla. Finding demonstrates no cystic or solid lesion seen. Left complete breast ultrasound includes all four quadrants, the retroareolar region and axilla. Finding demonstrates no cystic or solid lesion seen. These results were verbally communicated with the patient and result sheet given to the patient on 01/17/21. ASSESSMENT: Negative, BI-RAD 1 RECOMMENDATION: Routine screening mammogram of both breasts in 1 year. Manage patient on a clinical basis.
== END | disposition home or self-care (01) ==
LOC: RADMAMWWP 14:11
PROVIDERS: ATTEND Family Medicine
DX: N64.89 Other specified disorders of breast (principal)
CPT/HCPCS: 77066

== ENCOUNTER 2022-03-06 15:15 | Emergency (ER) | payer OTHER ==
[2022-03-06 16:20] VITALS: TEMP 98.5
--- NOTE | 2022-03-06 21:16 | ED ---
General Adult HPI - General Source: patient, RN notes reviewed Mode of arrival: ambulatory Limitations: no limitations <Jacob Aguirre - Last Filed: 03/06/22 21:35> <Isidro Bynum - Last Filed: 03/07/22 02:43> - General Chief complaint: Psychiatric Symptoms Stated complaint: Mental health eval Time Seen by Provider: 03/06/22 20:36 - History of Present Illness Initial comments: Patient is a pleasant 41-year-old female presenting to the emergency department with concerns for tank. Patient has had similar episodes multiple times recently. Patient is having difficulty concentrating. Patient is feeling angry and aggression. Patient has thoughts of self-harm however no plan. Patient is worried she could be angry and aggressive physically with other people. No physical complaints. No alcohol. (Jacob Aguirre) - Related Data Home Medications Medication Instructions Recorded Confirmed Albuterol Sulfate [Proair Hfa] 2 puff INHALATION RT-Q6H PRN 07/19/14 09/12/19 buPROPion HCL [Wellbutrin XL] 150 mg PO HS 09/08/19 09/12/19 traZODone HCL 50 mg PO HS 09/08/19 09/12/19 Previous Rx's Medication Instructions Recorded HYDROcodone/APAP 5-325MG [[place] 1 tab PO Q4HR PRN #30 tab 09/12/19 5-325] Ibuprofen [Motrin] 600 mg PO Q6HR PRN #30 tab 09/12/19 buPROPion XL [Wellbutrin XL] 150 mg PO DAILY #7 tab 03/07/22 Allergies Allergy/AdvReac Type Severity Reaction Status Date / Time ciprofloxacin [From Cipro] Allergy Hallucinati Verified 03/06/22 16:20 ons Review of Systems ROS Other: All systems not noted in ROS Statement are negative. Constitutional: Denies: fever Eyes: Denies: eye pain ENT: Denies: ear pain Respiratory: Denies: cough Cardiovascular: Denies: chest pain Endocrine: Denies: fatigue Gastrointestinal: Denies: abdominal pain Genitourinary: Denies: urgency Musculoskeletal: Denies: back pain Skin: Denies: rash Psychiatric: Reports: as per HPI <Jacob Aguirre - Last Filed: 03/06/22 21:35> ROS Other: All systems not noted in ROS Statement are negative. <Isidro Bynum - Last Filed: 03/07/22 02:43> ROS Statement: Those systems with pertinent positive or pertinent negative responses have been documented in the HPI. Past Medical History Past Medical History: Asthma, Osteoarthritis (OA) Additional Past Medical History / Comment(s): hiatal hernia History of Any Multi-Drug Resistant Organisms: None Reported Past Surgical History: Adenoidectomy, Cholecystectomy, Tonsillectomy Additional Past Surgical History / Comment(s): D&C Past Anesthesia/Blood Transfusion Reactions: No Reported Reaction Past Psychological History: Anxiety, Bipolar, Depression Smoking Status: Never smoker Past Alcohol Use History: None Reported Past Drug Use History: None Reported - Past Family History Mother Family Medical History: No Reported History, Congestive Heart Failure (CHF) <Jacob Aguirre Last Filed: 03/06/22 21:35> General Exam Limitations: no limitations General appearance: alert, in no apparent distress Head exam: Present: normocephalic Eye exam: Present: normal appearance Neck exam: Present: normal inspection Respiratory exam: Present: normal lung sounds bilaterally Cardiovascular Exam: Present: regular rate, normal rhythm GI/Abdominal exam: Present: soft. Absent: tenderness Extremities exam: Present: normal inspection Neurological exam: Present: alert Psychiatric exam: Present: anxious Skin exam: Present: normal color <Jacob Aguirre Last Filed: 03/06/22 21:35> Course Vital Signs 03/06/22 16:17 Temperature 98.5 F Pulse Rate 67 Respiratory 17 Rate Blood Pressure 137/81 O2 Sat by Pulse 99 Oximetry EKG Findings - EKG Comments: EKG Findings:: Sinus rhythm rate 74. WA 132. QRS 90. QT 377. QTC 45. Normal axis. Normal QRS. No acute ST change. <Jacob Aguirre - Last Filed: 03/06/22 21:35> Medical Decision Making - Lab Data Lab Results 03/06/22 Range/Units 21:11 Urine Opiates Screen Not Detected (NotDetected) Ur Oxycodone Screen Not Detected (NotDetected) Urine Methadone Screen Not Detected (NotDetected) Ur Propoxyphene Screen Not Detected (NotDetected) Ur Barbiturates Screen Not Detected (NotDetected) U Tricyclic Antidepress Not Detected (NotDetected) Ur Phencyclidine Scrn Not Detected (NotDetected) Ur Amphetamines Screen Not Detected (NotDetected) U Methamphetamines Scrn Not Detected (NotDetected) U Benzodiazepines Scrn Not Detected (NotDetected) Urine Cocaine Screen Not Detected (NotDetected) U Marijuana (THC) Screen Detected H (NotDetected) Disposition <Jacob Aguirre - Last Filed: 03/06/22 21:35> Is patient prescribed a controlled substance at d/c from ED?: No <Isidro Bynum - Last Filed: 03/07/22 02:43> Clinical Impression: Mood disorder Disposition: HOME SELF-CARE Condition: Good Instructions (If sedation given, give patient instructions): Mood Disorders (ED) Prescriptions: buPROPion XL [Wellbutrin XL] 150 mg PO DAILY #7 tab Referrals: Shawn Valdez MD [Primary Care Provider] - 1-2 days
[2022-03-06 21:28] LABS: Amphetamine Screen,Urine Not Detected (NotDetected); Barbiturate Screen,Urine Not Detected (NotDetected); Benzodiazepines Screen,Urine Not Detected (NotDetected); Cocaine Screen,Urine Not Detected (NotDetected); Methadone Screen, Urine Not Detected (NotDetected); Opiate Screen,Urine Not Detected (NotDetected); Oxycodone Screen, Urine Not Detected (NotDetected); Phencyclidine Screen,Urine Not Detected (NotDetected); Tricyclic Antidepressant,Urine Not Detected (NotDetected); Urn Cannabinoid Scrn Detected (NotDetected)
[2022-03-07 02:57] VITALS: BP 141/79; PULSE 74; RESP 16
== END 2022-03-07 02:57 | disposition home or self-care (01) ==
LOC: EC 15:15
DX: F39 Unspecified mood [affective] disorder (principal); J45.909 Unspecified asthma, uncomplicated; Z88.1 Allergy status to other antibiotic agents
CPT/HCPCS: 80306; 82075; 93005

== ENCOUNTER → 2023-01-27 | Outpatient (CLI) | payer OTHER ==
--- NOTE | 2023-01-28 21:13 | MM ---
Reason for Exam: Screening (asymptomatic). Last mammogram was performed 2 year(s) and 0 month(s) ago. Patient History: Menarche at age 10. First Full-Term at age 27. Premenopausal. Last menstrual period: 01/03/2023 Risk Values: Tarah 5 year model risk: 0.7%. NCI Lifetime model risk: 12.0%. Prior Study Comparison: 01/17/2021 Bilateral Diagnostic Mammogram, [facility]. 01/17/2021 Bilateral Diagnostic Ultrasound, [facility]. Tissue Density: There are scattered fibroglandular densities. Findings: Analyzed By CAD. There is no suspicious group of microcalcifications or new suspicious mass in either breast. Overall Assessment: Negative, BI-RAD 1 Management: Screening Mammogram of both breasts in 1 year. . Patient should continue monthly self-breast exams. A clinical breast exam by your physician is recommended on an annual basis. This exam should not preclude additional follow-up of suspicious palpable abnormalities. Note on Tarah scores and lifetime risk: 1. A Tarah score greater than 3% is considered moderate risk. If this is the case, consider specialist referral to assess eligibility for a risk reducing agent. 2. If overall lifetime risk for the development of breast cancer is 20% or higher, the patient may qualify for future screening with alternating mammogram and breast MRI. Electronically signed and approved by: Cherelle Delacruz M.D. Radiologist
== END | disposition home or self-care (01) ==
LOC: RADMAMWWP 16:28
PROVIDERS: ATTEND Family Medicine
DX: Z12.31 Encounter for screening mammogram for malignant neoplasm of breast (principal)
CPT/HCPCS: 77067

== ENCOUNTER → 2024-08-14 | Outpatient (CLI) | payer OTHER ==
--- NOTE | 2024-08-16 09:32 | MM ---
Reason for Exam: Screening (asymptomatic). Last mammogram was performed 1 year(s) and 7 month(s) ago. Patient History: Menarche at age 10. First Full-Term at age 27. Premenopausal. Risk Values: Tarah 5 year model risk: 0.8%. NCI Lifetime model risk: 11.9%. Prior Study Comparison: 01/17/2021 Bilateral Diagnostic Mammogram, [facility]. 01/27/2023 Bilateral MG screening mammo w CAD, [facility]. Tissue Density: There are scattered areas of fibroglandular density. Findings: Analyzed By CAD. Right breast: There is no suspicious group of microcalcifications or new suspicious mass. Left breast: There is no suspicious group of microcalcifications or new suspicious mass. Overall Assessment: Negative, BI-RAD 1 Management: Screening Mammogram of both breasts in [address] [facility] will attempt to contact patient to return for supplemental views and ultrasound if indicated. Patient should continue monthly self-breast exams. A clinical breast exam by your physician is recommended on an annual basis. This exam should not preclude additional follow-up of suspicious palpable abnormalities. Note on Tarah scores and lifetime risk: 1. A Tarah score greater than 3% is considered moderate risk. If this is the case, consider specialist referral to assess eligibility for a risk reducing agent. 2. If overall lifetime risk for the development of breast cancer is 20% or higher, the patient may qualify for future screening with alternating mammogram and breast MRI. [facility], , 08/16/2024 9:29 AM. Electronically signed and approved by: Ranjit Barron DO
== END | disposition home or self-care (01) ==
LOC: RADMAMWWP 07:35
PROVIDERS: ATTEND Family Medicine
DX: Z12.31 Encounter for screening mammogram for malignant neoplasm of breast (principal); R92.323 Mammographic fibroglandular density, bilateral breasts
CPT/HCPCS: 77063; 77067